=== PATIENT | male | born 1965 | race American Indian/Alaskan Native ===

== ENCOUNTER 2020-04-25 12:49 | Emergency (ER) | payer SELFPAY ==
--- NOTE | 2020-04-25 13:19 | Emergency Department Report ---
Blank Doc - Documentation Documentation: 54-year-old F [place] male presents emerge department complaining of severe l eft testicular pain which originated in his left flank was been present for about the past 1 week. He reports no hematuria no no dysuria. Ports no nausea vomiting no abdominal pain This initial assessment/diagnostic orders/clinical plan/treatment(s) is/are subject to change based on patients health status, clinical progression and re- assessment by fellow clinical providers in the ED. Further treatment and workup at subsequent clinical providers discretion. Patient/guardian urged not to elope from the ED as their condition may be serious if not clinically assessed and managed. Initial orders include: Urinalysis and ultrasound
[2020-04-25] MEDS ORDERED: oxyCODONE /ACETAMINOPHEN 5-325MG TAB PO ONE (13:20)
[2020-04-25 15:12] LABS: Bilirubin,Urine NEG (Negative); Blood,Urine NEG (Negative); Color,Urine Yellow (Yellow); Mucus,Urine FEW /HPF; Protein,Urine <15 mg/dL mg/dL (Negative)
--- NOTE | 2020-04-25 15:12 | Ultrasound Report ---
ULTRASOUND SCROTUM INDICATION / CLINICAL INFORMATION: severe left testicular pain. COMPARISON: None available. FINDINGS -- RIGHT TESTIS: The right testicle is asymmetrically smaller, measuring 2.7 x 1.2 x 2 cm. The right testicle demonstrates diffuse heterogeneous relatively hypoechoic echotexture. No focal mass is identified. Th ere is normal Doppler flow. EPIDIDYMIS: Epididymal head cyst, otherwise unremarkable. HYDROCELE: None. VARICOCELE: No discrete varicocele is detected. FINDINGS -- LEFT TESTIS: Left testicle measures 4 x 2 x 2.9 cm. The testicle demonstrates a homogeneous echotexture wi thout mass. There is normal color Doppler flow. EPIDIDYMIS: Epididymal head cysts, otherwise unremarkable. HYDROCELE: Trace. VARICOCELE: No discrete varicocele is detected. ADDITIONAL FINDINGS: None. IMPRESSION: 1. Right testicle is asymmetrically smaller than the left with heterogeneous echotexture. This may re flect sequela of prior trauma or infection. The testicle demonstrates normal Doppler flow without mas s. 2. Normal sonographic appearance of the left testicle. No evidence of torsion. 3. Nonspecific trace left hydrocele. 4. Bilateral epididymal head cysts. Signer Name: Elmer Henderson MD Signed: 04/25/2020 3:07 PM Workstation Name: [id number]
[2020-04-25 18:27] VITALS: BP 153/85
--- NOTE | 2020-04-25 18:28 | Emergency Department Report ---
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 He reports no known swelling no no dysuria no hematuria no fevers chills or sweats pain is dull and and throbbing worse with palpation and certain range of motion. Location: left testicle, left inguinal region Severity: mild Quality: aching, dull Consistency: constant Improves with: none Worsens with: none new medication denies: discharge, swelling, urinary retention, blood in urine, nausea/vomiting, incontinence - Related Data Previous Rx's Medication Instructions Recorded Last Taken Type Ketorolac [Toradol] 10 mg PO Q6H PRN #20 tablet 04/25/20 Unknown Rx methOCARBAMOL [Robaxin TAB] 500 mg PO Q6H #28 tablet NS 04/25/20 Unknown Rx traMADoL [Ultram] 50 mg PO Q4HR PRN #14 tablet 04/25/20 Unknown Rx Allergies Allergy/AdvReac Type Severity Reaction Status Date / Time No Known Allergies Allergy Unverified 04/25/20 13:20 ED Review of Systems ROS: Stated complaint: BACK/TESTICLE PAIN Other details as noted in HPI ED Past Medical Hx - Past Medical History Previous Medical History?: No - Surgical History Past Surgical History?: No - Social History Smoking Status: Current Every Day Smoker Substance Use Type: None - Medications Home Medications: Home Medications Medication Instructions Recorded Confirmed Last Taken Type Ketorolac [Toradol] 10 mg PO Q6H PRN #20 tablet 04/25/20 Unknown Rx methOCARBAMOL [Robaxin TAB] 500 mg PO Q6H #28 tablet NS 04/25/20 Unknown Rx traMADoL [Ultram] 50 mg PO Q4HR PRN #14 tablet 04/25/20 Unknown Rx ED Physical Exam - General Limitations: No Limitations ED Course Vital Signs 04/25/20 04/25/20 13:17 13:24 Temperature 98.1 F Pulse Rate 73 Respiratory 18 18 Rate Blood Pressure 139/89 O2 Sat by Pulse 100 Oximetry ED Medical Decision Making - Medical Decision Making 54-year-old male with a inguinal pain on the left involving hernia or left inguinal ligament tear is a testicular torsion relatively normal. Examination does reveal a slight bulge to the area of pain. Pain significantly improved from 01/17/2005 down to 5 of 5 he states that he primarily wanted to receive some muscle relaxer and anti-inflammatory. No dysuria no hematuria no fever chills or sweats. He is in a good mood very jovial happy singing phrases Critical care attestation.: If time is entered above; I have spent that time in minutes in the direct care of this critically ill patient, excluding procedure time. ED Disposition Clinical Impression: Left inguinal pain Disposition: DC-01 TO HOME OR SELFCARE Is pt being admited?: No Does the pt Need Aspirin: No Condition: Stable Instructions: Inguinal Hernia, Adult, [id number], Hernia, Adult Prescriptions: methOCARBAMOL [Robaxin TAB] 500 mg PO Q6H #28 tablet NS Ketorolac [Toradol] 10 mg PO Q6H PRN #20 tablet PRN Reason: Pain traMADoL [Ultram] 50 mg PO Q4HR PRN #14 tablet PRN Reason: Pain Referrals: [facility] [Provider Group] - 3-5 Days
== END 2020-04-25 18:30 | disposition home or self-care (01) ==
LOC: ED 12:49
DX: R10.32 Left lower quadrant pain (principal); F17.200 Nicotine dependence, unspecified, uncomplicated; Z79.899 Other long term (current) drug therapy
CPT/HCPCS: 81001; 93975